=== PATIENT | female | born 1980 | race African-American/Black ===

== ENCOUNTER 2021-09-23 22:58 | Emergency (ER) | payer OTHER ==
[2021-09-23 23:10] VITALS: BMI 32.5
[2021-09-23 23:44] LABS: PH,URINE 6.5 (5.0-8.0); URINE APPEARANCE CLEAR; URINE BILIRUBIN NEGATIVE (NEGATIVE); URINE COLOR YELLOW; URINE GLUCOSE (UA) NEGATIVE (NEGATIVE); URINE KETONE NEGATIVE (NEGATIVE); URINE LEUK ESTERASE NEGATIVE (NEGATIVE); URINE NITRITE NEGATIVE (NEGATIVE); URINE PROTEIN NEGATIVE (NEGATIVE)
[2021-09-24 00:33] VITALS: BP 106/67; PULSE 89; TEMP 98.2
== END 2021-09-24 00:15 | disposition home or self-care (01) ==
LOC: JER 22:58
DX: O26.893 Other specified pregnancy related conditions, third trimester (principal); R10.9 Unspecified abdominal pain; Z3A.36 36 weeks gestation of pregnancy
CPT/HCPCS: 81003; 99281-25

== ENCOUNTER 2021-10-12 06:06 | Inpatient (IN) | payer OTHER ==
[2021-10-12] MEDS ORDERED: CITRIC ACID/SODIUM CITRATE 30 ML UNIT-DOSE CUP PO ONE (06:45)
[2021-10-12] MEDS ORDERED: ELECTROLYTE-148 SOLN 500 ML IV ONE ×2 (06:45→07:15)
[2021-10-12 07:03] VITALS: BMI 32.9
[2021-10-12] MEDS ORDERED: ELECTROLYTE-148 SOLN 1,000 ML IV SCH (07:45)
[2021-10-12] MEDS ORDERED: KETOROLAC TROMETHAMINE 30 MG/1 ML VIAL ONE (07:57)
[2021-10-12] MEDS ORDERED: PHENYLEPHRINE HCL 10 MG/1 ML SINGLE DOSE VIAL ONE (07:57)
[2021-10-12] MEDS ORDERED: ONDANSETRON 4 MG/2 ML VIAL ONE (07:57)
[2021-10-12] MEDS ORDERED: morphine SULFATE/PF 1 MG/2 ML (2cc Syringe - QUVA) ONE (07:57)
[2021-10-12] MEDS ORDERED: OXYTOCIN 10 UNITS/ML VIAL ONE (07:57)
[2021-10-12] MEDS ORDERED: ceFAZolin SODIUM 1 GM VIAL ONE (08:37)
[2021-10-12] MEDS ORDERED: BENZOCAINE 20% 57 GM BOTTLE TP PRN (09:24)
[2021-10-12] MEDS ORDERED: WITCH HAZEL 50% (TUCKS) 40 PAD/JAR PAD TP PRN (09:24)
[2021-10-12] MEDS ORDERED: BENZOCAINE 28 GM HEMORRHOIDAL OINTMENT TP PRN (09:24)
[2021-10-12] MEDS ORDERED: METHYLERGONOVINE MALEATE 0.2 MG/1 ML AMP IM PRN (09:24)
[2021-10-12] MEDS ORDERED: ONDANSETRON 4 MG/2 ML VIAL IVPUSH PRN (09:50)
[2021-10-12 10:36] LABS: CORD PCO2 47.2 mmHg (30-78); CORD pH 7.266 (7.14-7.44)
[2021-10-12] MEDS: FERROUS SO4 325 MG TABLET (FP) PO SCH ×2 (11:12→21:43)
[2021-10-12] MEDS: PRENATAL VITAMINS W/ FOLIC ACID TABLET (FP) PO SCH (11:12)
[2021-10-12 11:29] LABS: HIV INTERPRETATION NEGATIVE (NEGATIVE)
[2021-10-12] MEDS: IBUPROFEN 800 MG/8 ML IJ IVPB PRN (15:03)
[2021-10-12] MEDS: OXYTOCIN 20 UNITS in 0.9% NS 20 UNIT/1,000 ML INFUS.BAG IV SCH (19:46)
[2021-10-13] MEDS: OXYTOCIN 20 UNITS in 0.9% NS 20 UNIT/1,000 ML INFUS.BAG IV SCH (02:59)
[2021-10-13] MEDS: IBUPROFEN 800 MG/8 ML IJ IVPB PRN (02:59)
[2021-10-13] MEDS: ACETAMINOPHEN 325 MG TABLET (FP) PO PRN (06:24)
[2021-10-13] MEDS: SIMETHICONE 80 MG TAB.CHEW (FP) PO PRN ×2 (06:25→19:51)
[2021-10-13] MEDS ORDERED: oxyCODONE HCL 5 MG TABLET PO PRN ×2 (08:00)
[2021-10-13] MEDS ORDERED: BISACODYL 10 MG SUPP.RECT RC PRN (09:24)
[2021-10-13] MEDS: PRENATAL VITAMINS W/ FOLIC ACID TABLET (FP) PO SCH (09:29)
[2021-10-13] MEDS: FERROUS SO4 325 MG TABLET (FP) PO SCH ×3 (09:29→22:05)
[2021-10-13 09:32] LABS: BASO % 0.5 % (0-2.0); EOS % 1.4 % (0-4.5); HEMATOCRIT 34.1 % (32.4-45.2); HEMOGLOBIN 11.5 GM/dL (10.7-15.3); LYMPH % 14.3 % (8-40); MCHC 33.6 g/dl (32.0-36.0); MEAN CELL VOLUME 86.3 fl (80-96); MEAN PLT VOLUME 8.2 fl (7.5-11.1); MONO % 7.8 % (3.8-10.2); PLATELET COUNT 273 10^3/uL (134-434); RBC 3.95 M/mm3 (3.60-5.2); WHITE BLOOD COUNT 13.7 K/mm3 (4.0-10.0)
[2021-10-13] MEDS: IBUPROFEN 600 MG TABLET (FP) PO PRN ×2 (14:20→19:51)
[2021-10-13] MEDS: SENNOSIDES/DOCUSATE COMBO (SENNA PLUS) TABLET (UD) PO PRN (19:51)
[2021-10-13] MEDS ORDERED: ZOLPIDEM TARTRATE 5 MG TABLET PO PRN (22:13)
[2021-10-14] MEDS: IBUPROFEN 600 MG TABLET (FP) PO PRN ×4 (05:56→21:35)
[2021-10-14] MEDS: ACETAMINOPHEN 325 MG TABLET (FP) PO PRN (08:46)
[2021-10-14] MEDS: SIMETHICONE 80 MG TAB.CHEW (FP) PO PRN ×3 (08:46→21:35)
[2021-10-14] MEDS: FERROUS SO4 325 MG TABLET (FP) PO SCH ×2 (09:39→21:20)
[2021-10-14] MEDS: PRENATAL VITAMINS W/ FOLIC ACID TABLET (FP) PO SCH (09:39)
[2021-10-14] MEDS: SENNOSIDES/DOCUSATE COMBO (SENNA PLUS) TABLET (UD) PO PRN (21:21)
[2021-10-15] MEDS: SIMETHICONE 80 MG TAB.CHEW (FP) PO PRN ×3 (04:31→21:11)
[2021-10-15] MEDS: IBUPROFEN 600 MG TABLET (FP) PO PRN ×4 (04:31→21:11)
[2021-10-15] MEDS: PRENATAL VITAMINS W/ FOLIC ACID TABLET (FP) PO SCH (09:40)
[2021-10-15] MEDS: FERROUS SO4 325 MG TABLET (FP) PO SCH ×2 (09:41→21:11)
[2021-10-15 10:16] LABS: BASO % 0.4 % (0-2.0); EOS % 2.4 % (0-4.5); HEMATOCRIT 32.9 % (32.4-45.2); HEMOGLOBIN 10.8 GM/dL (10.7-15.3); LYMPH % 32.2 % (8-40); MCH 28.9 pg (25.7-33.7); MEAN CELL VOLUME 87.5 fl (80-96); MEAN PLT VOLUME 8.1 fl (7.5-11.1); PLATELET COUNT 281 10^3/uL (134-434); RBC 3.76 M/mm3 (3.60-5.2); RDW 14.7 % (11.6-15.6); WHITE BLOOD COUNT 8.9 K/mm3 (4.0-10.0)
[2021-10-15] MEDS: SENNOSIDES/DOCUSATE COMBO (SENNA PLUS) TABLET (UD) PO PRN (21:13)
[2021-10-15 22:23] VITALS: RESP 18
[2021-10-16] MEDS: SIMETHICONE 80 MG TAB.CHEW (FP) PO PRN ×2 (04:21→09:38)
[2021-10-16] MEDS: IBUPROFEN 600 MG TABLET (FP) PO PRN ×2 (04:22→09:38)
[2021-10-16 08:57] VITALS: BP 124/82; PULSE 74; TEMP 98
[2021-10-16] MEDS: PRENATAL VITAMINS W/ FOLIC ACID TABLET (FP) PO SCH (09:38)
[2021-10-16] MEDS: FERROUS SO4 325 MG TABLET (FP) PO SCH (09:38)
== END 2021-10-16 10:30 | disposition home or self-care (01) | DRG 788 ==
LOC: JLDR 06:06 → J3W 10:45
PROVIDERS: ADMIT Obstetrics & Gynecology; ATTEND Obstetrics & Gynecology
PROC: 10D00Z1 Extraction of Products of Conception, Low, Open Approach (ICD-10-PCS; principal; 2021-10-12)
DX: O32.2XX0 Maternal care for transverse and oblique lie, not applicable or unspecified (principal); O69.81X0 Labor and delivery complicated by cord around neck, without compression, not applicable or unspecified; Z3A.39 39 weeks gestation of pregnancy; Z37.0 Single live birth
CPT/HCPCS: 36415; 36600; 82803; 85025; 86850; 86900; 86901; 87389; 88307-TC

== ENCOUNTER 2021-12-08 23:18 | Emergency (ER) | payer OTHER ==
[2021-12-08 23:22] VITALS: BP 137/78; PULSE 88; RESP 18; TEMP 98.3; BMI 28.3
[2021-12-08] MEDS ORDERED: MAG HYDROX/AL HYDROX/SIMETH 30 ML UNIT-DOSE CUP PO ONE (23:45)
[2021-12-08] MEDS ORDERED: DICYCLOMINE HCL 20 MG TABLET PO ONE (23:45)
[2021-12-08] MEDS ORDERED: FAMOTIDINE 20 MG TABLET PO ONE (23:45)
[2021-12-09] MEDS ORDERED: FAMOTIDINE 20 MG TABLET ONE (00:24)
[2021-12-09] MEDS ORDERED: MAG HYDROX/AL HYDROX/SIMETH 30 ML UNIT-DOSE CUP ONE (00:24)
[2021-12-09] MEDS ORDERED: DICYCLOMINE HCL 10 MG CAPSULE ONE (00:24)
[2021-12-09 01:07] LABS: URINE APPEARANCE CLEAR; URINE BILIRUBIN NEGATIVE (NEGATIVE); URINE COLOR YELLOW; URINE GLUCOSE (UA) NEGATIVE (NEGATIVE); URINE KETONE NEGATIVE (NEGATIVE); URINE LEUK ESTERASE NEGATIVE (NEGATIVE); URINE NITRITE NEGATIVE (NEGATIVE); URINE PROTEIN NEGATIVE (NEGATIVE)
[2021-12-09 01:09] LABS: HCG,QUALITATIVE URINE Negative
[2021-12-09 01:31] LABS: ALBUMIN 3.4 g/dl (3.4-5.0)
[2021-12-09 01:32] LABS: BLOOD UREA NITROGEN 7.6 mg/dL (7-18)
[2021-12-09 01:34] LABS: CREATININE 0.7 mg/dL (0.55-1.3)
[2021-12-09 01:36] LABS: BILIRUBIN,TOTAL 0.4 mg/dL (0.2-1); TOT PROT 6.9 g/dl (6.4-8.2)
[2021-12-09 01:55] LABS: BASO % 0.5 % (0-2.0); EOS % 3.2 % (0-4.5); HEMATOCRIT 35.3 % (32.4-45.2); HEMOGLOBIN 11.6 GM/dL (10.7-15.3); LYMPH % 50.2 % (8-40); MCHC 32.8 g/dl (32.0-36.0); MEAN CELL VOLUME 85.3 fl (80-96); MEAN PLT VOLUME 7.6 fl (7.5-11.1); NEUT % 37.1 % (42.8-82.8); PLATELET COUNT 406 10^3/uL (134-434); RBC 4.14 M/mm3 (3.60-5.2); RDW 13.4 % (11.6-15.6); WHITE BLOOD COUNT 6.7 K/mm3 (4.0-10.0)
== END 2021-12-09 02:09 | disposition home or self-care (01) ==
LOC: JER 23:18
DX: K21.9 Gastro-esophageal reflux disease without esophagitis (principal)
CPT/HCPCS: 36415; 80053; 81003; 83690; 84484; 84703; 85025; 93005; 93010; 99284-25

== ENCOUNTER 2022-12-18 01:50 | Emergency (ER) | payer OTHER ==
[2022-12-18 01:58] VITALS: TEMP 98.7; BMI 26.6
[2022-12-18] MEDS ORDERED: SODIUM CHLORIDE 0.9% 500 ML INFUS.BAG IV ONE (02:26)
[2022-12-18 03:01] LABS: BASO % 0.4 % (0-2.0); EOS % 0.4 % (0-4.5); HEMATOCRIT 34.7 % (32.4-45.2); HEMOGLOBIN 11.6 GM/dL (10.7-15.3); LYMPH % 12.4 % (8-40); MCH 27.4 pg (25.7-33.7); MCHC 33.6 g/dl (32.0-36.0); MEAN CELL VOLUME 81.4 fl (80-96); MEAN PLT VOLUME 7.8 fl (7.5-11.1); MONO % 11.8 % (3.8-10.2); PLATELET COUNT 255 10^3/uL (134-434); RBC 4.26 M/mm3 (3.60-5.2); RDW 14.1 % (11.6-15.6); WHITE BLOOD COUNT 11.5 K/mm3 (4.0-10.0)
[2022-12-18 03:08] LABS: INR 1.29 (0.83-1.09); PROTHROMBIN TIME (PATIENT) 14.9 SEC (9.7-13.0)
[2022-12-18 03:11] LABS: ACTIVATED PTT 27.4 SECONDS (25.2-36.5)
[2022-12-18 03:55] LABS: EPI CELLS 34 /uL (0-25.1); HYALINE CASTS 2 /uL (0-3.1); PH,URINE 5.5 (5.0-8.0); URINE APPEARANCE CLEAR; URINE BACTERIA 107 /uL (0-1359); URINE BILIRUBIN NEGATIVE (NEGATIVE); URINE COLOR YELLOW; URINE GLUCOSE (UA) NEGATIVE (NEGATIVE); URINE KETONE NEGATIVE (NEGATIVE); URINE LEUK ESTERASE TRACE (NEGATIVE); URINE NITRITE NEGATIVE (NEGATIVE); URINE PROTEIN 1+ (NEGATIVE); URINE RBC 16 /uL (0-23.9); URINE UROBILINOGEN 0.2 mg/dL (0.2-1.0); URINE WBC 25 /uL (0-25.8)
[2022-12-18 04:09] LABS: ALBUMIN 3.2 g/dl (3.4-5.0); CALCIUM 8.3 mg/dL (8.5-10.1); MAGNESIUM 2.2 mg/dL (1.8-2.4)
[2022-12-18 04:11] LABS: PHOSPHOROUS 3.4 mg/dL (2.5-4.9)
[2022-12-18 04:12] LABS: CREATININE 0.9 mg/dL (0.55-1.3)
[2022-12-18 04:13] LABS: BILIRUBIN,TOTAL 0.7 mg/dL (0.2-1); TOT PROT 6.9 g/dl (6.4-8.2)
[2022-12-18 04:25] LABS: YEAST NONE SEEN (NEGATIVE)
[2022-12-18 05:25] VITALS: BP 98/61; PULSE 78; RESP 19
== END 2022-12-18 05:25 | disposition home or self-care (01) ==
LOC: JER 01:50
DX: R05.9 Cough, unspecified (principal); J02.9 Acute pharyngitis, unspecified; R09.89 Other specified symptoms and signs involving the circulatory and respiratory systems; R55 Syncope and collapse; Z20.822 Contact with and (suspected) exposure to COVID-19
CPT/HCPCS: 0241U-QW; 36415; 70450-TC; 71046-TC-FY; 80053; 81003; 83735; 84100; 84484; 84703; 85025; 85610; 85730; 93005; 93010; 99285-25

== ENCOUNTER 2023-09-11 20:13 | Emergency (ER) | payer OTHER ==
[2023-09-11 20:20] VITALS: BP 108/71; PULSE 72; RESP 16; BMI 24.5
[2023-09-11 20:23] VITALS: TEMP 98.5
== END 2023-09-11 21:19 | disposition home or self-care (01) ==
LOC: JERFT 20:13 → JER 20:13 → JERFT 21:19
DX: R19.7 Diarrhea, unspecified (principal)
CPT/HCPCS: 99282-25